=== PATIENT | female | born 1940 | race Caucasian/White ===

== ENCOUNTER 2016-07-21 | Outpatient (CLI) | payer MEDICARE, OTHER | END 2016-07-21 15:53 | disposition critical access hospital (66) | CPT/HCPCS: A0425; A0429 ==

== ENCOUNTER 2016-07-21 16:30 | Inpatient (IN) | payer MEDICARE, OTHER ==
[2016-07-21] MEDS ORDERED: ONDANSETRON ODT 4 MG TABLET TL STA (16:40)
[2016-07-21] MEDS ORDERED: BENZONATATE 100 MG CAPSULE PO STA (16:40)
[2016-07-21] MEDS ORDERED: SODIUM CHLORIDE 0.9% 1,000 ML IV ONE (16:40)
[2016-07-21] MEDS ORDERED: ACETAMINOPHEN 325 MG TABLET PO STA (16:40)
[2016-07-21] MEDS ORDERED: guaiFENesin/CODEINE 5 ML UDC PO STA (16:40)
[2016-07-21] MEDS ORDERED: ONDANSETRON ODT 4 MG TABLET ONE (16:44)
[2016-07-21] MEDS ORDERED: BENZONATATE 100 MG CAPSULE PO ONE (16:44)
[2016-07-21] MEDS ORDERED: guaiFENesin/CODEINE 5 ML UDC ONE (16:44)
[2016-07-21] MEDS ORDERED: ACETAMINOPHEN 325 MG TABLET PO ONE (16:44)
[2016-07-21] MEDS ORDERED: OSELTAMIVIR 75 MG CAPSULE PO STA (17:47)
[2016-07-21] MEDS ORDERED: OSELTAMIVIR 75 MG CAPSULE PO ONE (17:52)
[2016-07-21] MEDS ORDERED: SODIUM CHLORIDE FLUSH 0.9% 10 ML SYRINGE IVP PRN (18:55)
[2016-07-21] MEDS ORDERED: ONDANSETRON ODT 4 MG TABLET TL PRN (18:55)
[2016-07-21] MEDS ORDERED: ACETAMINOPHEN 325 MG TABLET PO PRN (18:55)
[2016-07-21] MEDS: SODIUM CHLORIDE 0.9% 1,000 ML IV SCH (19:34)
[2016-07-21] MEDS ORDERED: SODIUM CHLORIDE 0.9% IV SCH (20:00)
[2016-07-21] MEDS: AZITHROMYCIN INJ 500 MG in SODIUM CHLORIDE 0.9% 250 ML IV SCH ×2 (20:00→20:21)
[2016-07-21] MEDS ORDERED: CEFTRIAXONE IV SCH (20:00)
[2016-07-21] MEDS: SERTRALINE 50 MG TABLET PO SCH (20:45)
[2016-07-21] MEDS: oxyCOD/ACETAMIN 5 MG/325 MG TABLET PO PRN (20:45)
[2016-07-21] MEDS: LORazepam 0.5 MG TABLET PO PRN (20:45)
[2016-07-21] MEDS: traZODone 50 MG TABLET PO SCH (20:45)
[2016-07-21] MEDS: SODIUM CHLORIDE FLUSH 0.9% 10 ML SYRINGE IVP SCH (20:46)
[2016-07-21] MEDS: cefTRIAXone 2 GM in SODIUM CHLORIDE 0.9% MINIBAG 100 ML IV SCH (21:46)
[2016-07-22] MEDS: SODIUM CHLORIDE FLUSH 0.9% 10 ML SYRINGE IVP SCH ×3 (01:36→21:26)
[2016-07-22] MEDS: oxyCOD/ACETAMIN 5 MG/325 MG TABLET PO PRN ×5 (02:07→21:23)
[2016-07-22] MEDS: guaiFENesin/CODEINE 5 ML UDC PO PRN ×2 (02:12→11:16)
[2016-07-22] MEDS: BENZONATATE 100 MG CAPSULE PO PRN ×2 (03:11→21:22)
[2016-07-22] MEDS: SODIUM CHLORIDE 0.9% 1,000 ML IV SCH ×2 (06:07→15:57)
[2016-07-22] MEDS: LEVOTHYROXINE 75 MCG TABLET PO SCH (06:08)
[2016-07-22] MEDS: hydroCHLOROthiazide 25 MG TABLET PO SCH (08:11)
[2016-07-22] MEDS: SACCHAROMYCES BOULARDII 250 MG CAPSULE PO SCH ×2 (08:11→16:39)
[2016-07-22] MEDS: ENOXAPARIN 40 MG/0.4 ML SYRINGE SUBQ SCH (08:11)
[2016-07-22] MEDS: SERTRALINE 50 MG TABLET PO SCH ×2 (08:11→21:23)
[2016-07-22] MEDS: ACYCLOVIR 200 MG CAPSULE PO SCH (08:11)
[2016-07-22] MEDS: LISINOPRIL 5 MG TABLET PO SCH (08:11)
[2016-07-22] MEDS: POLYETHYLENE GLYCOL 3350 17 GM PACKET PO SCH (08:12)
[2016-07-22] MEDS ORDERED: OSELTAMIVIR 30 MG/5 ML SYRINGE PO SCH (09:00)
[2016-07-22] MEDS ORDERED: OSELTAMIVIR 75 MG CAPSULE PO SCH ×2 (09:00→21:00)
[2016-07-22] MEDS: OSELTAMIVIR 30 MG CAPSULE PO SCH ×2 (11:09→21:22)
[2016-07-22] MEDS: BUTALB/ACETAM/CAFF 50/325/40MG TABLET PO PRN (11:16)
[2016-07-22] MEDS ORDERED: ACETAMINOPHEN 325 MG TABLET PO PRN (12:57)
[2016-07-22] MEDS: AZITHROMYCIN INJ 500 MG in SODIUM CHLORIDE 0.9% 250 ML IV SCH (19:14)
[2016-07-22] MEDS: traZODone 50 MG TABLET PO SCH (21:23)
[2016-07-22] MEDS: cefTRIAXone 2 GM in SODIUM CHLORIDE 0.9% MINIBAG 100 ML IV SCH (21:25)
[2016-07-22] MEDS: LORazepam 0.5 MG TABLET PO PRN (21:40)
[2016-07-23] MEDS ORDERED: traZODone 50 MG TABLET PO SCH (00:04)
[2016-07-23] MEDS: SODIUM CHLORIDE FLUSH 0.9% 10 ML SYRINGE IVP SCH (00:12)
[2016-07-23] MEDS: SODIUM CHLORIDE 0.9% 1,000 ML IV SCH (03:07)
[2016-07-23] MEDS: oxyCOD/ACETAMIN 5 MG/325 MG TABLET PO PRN ×2 (03:11→10:16)
[2016-07-23] MEDS: LEVOTHYROXINE 75 MCG TABLET PO SCH (06:04)
[2016-07-23] MEDS: BUTALB/ACETAM/CAFF 50/325/40MG TABLET PO PRN (08:19)
[2016-07-23] MEDS: BENZONATATE 100 MG CAPSULE PO PRN (08:20)
[2016-07-23] MEDS: OSELTAMIVIR 30 MG CAPSULE PO SCH (08:20)
[2016-07-23] MEDS: SACCHAROMYCES BOULARDII 250 MG CAPSULE PO SCH (08:20)
[2016-07-23] MEDS: SERTRALINE 50 MG TABLET PO SCH (08:20)
[2016-07-23] MEDS: LISINOPRIL 5 MG TABLET PO SCH (08:20)
[2016-07-23] MEDS: hydroCHLOROthiazide 25 MG TABLET PO SCH (08:20)
[2016-07-23] MEDS: ACYCLOVIR 200 MG CAPSULE PO SCH (08:21)
[2016-07-23] MEDS: POLYETHYLENE GLYCOL 3350 17 GM PACKET PO SCH (08:21)
[2016-07-23] MEDS: ENOXAPARIN 40 MG/0.4 ML SYRINGE SUBQ SCH (08:21)
[2016-07-23] MEDS ORDERED: POTASSIUM CHLORIDE 20 MEQ TABLET PO ONE (09:30)
[2016-07-24] MEDS ORDERED: BUPROPION HCL 75 MG PO SCH (09:00)
== END 2016-07-23 13:53 | disposition home or self-care (01) | DRG 195 ==
DX: J18.9 Pneumonia, unspecified organism (principal); R53.1 Weakness; R91.1 Solitary pulmonary nodule; J10.08 Influenza due to other identified influenza virus with other specified pneumonia; G47.30 Sleep apnea, unspecified; J18.1 Lobar pneumonia, unspecified organism; E87.6 Hypokalemia; I10 Essential (primary) hypertension; G47.33 Obstructive sleep apnea (adult) (pediatric); F32.9 Major depressive disorder, single episode, unspecified; F43.10 Post-traumatic stress disorder, unspecified; G43.909 Migraine, unspecified, not intractable, without status migrainosus; E89.0 Postprocedural hypothyroidism; Z87.891 Personal history of nicotine dependence; Z85.42 Personal history of malignant neoplasm of other parts of uterus; Z98.84 Bariatric surgery status

== ENCOUNTER 2016-11-07 13:35 | Outpatient (CLI) | payer MEDICARE, OTHER | END 2016-11-07 13:36 | disposition home or self-care (01) | DX: R06.00 Dyspnea, unspecified (principal); R00.2 Palpitations ==

== ENCOUNTER 2017-05-26 12:33 | Outpatient (CLI) | payer MEDICARE, OTHER ==
[2017-05-26 13:14] LABS: CREATININE 0.7 mg/dL (0.4-1.0)
--- NOTE | 2017-05-26 16:05 | CT Report ---
CT OF THE CHEST WITHOUT CONTRAST: 05/26/2017 CLINICAL INDICATION: Nodules. TECHNIQUE: Axial CT images of the chest were obtained without contrast. COMPARISON: 07/21/2016. FINDINGS: The heart and great vessels demonstrate atherosclerotic calcifications. A small hiatal her yvette is present. Lingular atelectasis persists. There is a 3 mm nodule in the lateral right upper lobe (axial image 24). No suspicious pulmonary nodule or mass lesion is appreciated. No effusion or pneum othorax is present. Limited evaluation of upper abdominal structures demonstrates normal adrenal glan ds. The osseous structures demonstrate degenerative changes. IMPRESSION: STABLE LINGULAR ATELECTASIS. A 3 MM NODULE IN THE LATERAL RIGHT UPPER LOBE. In accordance with CT protocol optimization, one or more of the following dose reduction techniques w ere utilized for this exam: automated exposure control, adjustment of mA and/or KV based on patient size, or use of iterative reconstructive technique. JOB #: [id number] EXT JOB #:[id number]
== END 2017-05-26 12:34 | disposition home or self-care (01) ==
LOC: LAB 12:33
PROVIDERS: ATTEND Nurse Practitioner Family
DX: R91.1 Solitary pulmonary nodule (principal)
CPT/HCPCS: 36415; 71250; 82565

== ENCOUNTER 2018-04-27 08:39 | Day surgery (SDC) | payer MEDICARE, OTHER ==
[2018-04-27] MEDS ORDERED: LACTATED RINGERS 1,000 ML IV ONE (09:30)
[2018-04-27] MEDS ORDERED: LIDO GARGLE 30 ML BOTTLE ONE (09:44)
[2018-04-27] MEDS ORDERED: MIDAZOLAM 2 MG/2 ML VIAL IVP ONE (10:12)
[2018-04-27] MEDS ORDERED: fentaNYL 250 MCG/5 ML VIAL IVP ONE (10:12)
--- NOTE | 2018-04-27 10:26 | ANESTHESIA ---
Pre-Anesthesia VS, & Labs - Diagnosis anemia - Procedure EGD, Colonoscopy Vital Signs: Temp Pulse Resp BP Pulse Ox 36.4 C L 92 18 147/79 H 98 04/27/18 08:55 04/27/18 08:55 04/27/18 08:55 04/27/18 08:55 04/27/18 08:55 Height 5 ft 7 in Weight (kg) 105.1 kg Body Mass Index 35.4 - NPO >8 hours - Is Patient ?: Not Applicable Home Medications and Allergies Home Medications: Ambulatory Orders Multivitamin [Multiple Vitamins] 2 each PO DAILY 04/24/18 LORazepam [Ativan] 1 mg PO BID PRN 12/05/12 Lisinopril 10 mg PO DAILY 12/05/12 Oxycodone HCl/Acetaminophen [Percocet 5-325 mg Tablet] 1 each PO Q4H PRN 12/05/12 Acyclovir 800 mg PO DAILY 04/17/14 Hydrochlorothiazide 25 mg PO DAILY 04/17/14 Trazodone HCl 50 mg PO Q4HR PRN 04/17/14 Cyanocobalamin/Folic Acid [Vitamin Z04-Aylis Acid Tablet] 2 each SL DAILY 06/16/14 Levothyroxine Sodium 75 mcg PO QDAC 07/22/16 Fluoxetine HCl [Prozac] 40 mg PO DAILY 07/23/16 Multivitamin [Multiple Vitamins] 2 each PO DAILY 04/24/18 Allergies/Adverse Reactions: Allergies Allergy/AdvReac Type Severity Reaction Status Date / Time ketorolac tromethamine * Allergy Severe Anaphylaxis Verified 04/24/18 12:32 [From Toradol] dexamethasone Allergy Intermediate Irrational Verified 04/24/18 12:32 behavior hydrocodone bitartrate * Allergy Intermediate Nausea Verified 04/24/18 12:32 [From Vicodin] Penicillins Allergy Intermediate Rash Verified 04/24/18 12:32 morphine Allergy Severe Itching/ Uncoded 04/24/18 12:52 Buring sensation to skin zomax Allergy Severe Anaphylaxis Uncoded 04/24/18 12:52 Anes History & Medical History - Anesthetic History Anesthesia Complications: reports: No previous complications - Medical History Cardiovascular: reports: Hypertension, Arrhythmia Pulmonary: reports: None, Sleep apnea Gastrointestinal: reports: GERD Urinary: reports: Frequency Musculoskeletal: reports: Fibromyalgia Endocrine/Autoimmune: reports: None, HyPOthyroidism Skin: reports: Rosacea, Other Smoking Status: Former smoker - Surgical History General: Gastric surgery Gynecologic: Other Orthopedic: Hip replacement, Knee replacement, Shoulder arthroplasty, Arthroscopic surgery, Other Exam General: Alert Dental: WNL Mouth Openin Fingerbreadth Neck Mobility: Normal Plan Anesthesia Type: MAC (Report from Randa Moseley RN and care assumed as patient not sedated after Versed 6mg and Fentanyl 100mcg, per Dr Shepard's request) Consent for Procedure(s) Verified and Reviewed: Yes Code Status: Attempt Resuscitation ASA classification: 3-Severe systemic disease Is this case an emergency?: No
[2018-04-27] MEDS ORDERED: LIDOCAINE-MPF 2% 5 ML VIAL IM ONE (11:00)
[2018-04-27] MEDS ORDERED: PROPOFOL 200 MG/20 ML VIAL IVP ONE (11:00)
[2018-04-27 11:13] VITALS: BP 123/64
== END 2018-04-27 08:40 | disposition home or self-care (01) ==
LOC: SDS 08:39
PROVIDERS: ATTEND Surgery
PROC: 0DBH8ZX Excision of Cecum, Via Natural or Artificial Opening Endoscopic, Diagnostic (ICD-10-PCS; principal; 2018-04-27 09:45)
PROC: 0DJ08ZZ Inspection of Upper Intestinal Tract, Via Natural or Artificial Opening Endoscopic (ICD-10-PCS; 2018-04-27 09:45)
DX: D62 Acute posthemorrhagic anemia (principal); K57.31 Diverticulosis of large intestine without perforation or abscess with bleeding; K64.8 Other hemorrhoids; K63.89 Other specified diseases of intestine; T88.52XA Failed moderate sedation during procedure, initial encounter; T41.1X5A Adverse effect of intravenous anesthetics, initial encounter; Y92.234 Operating room of hospital as the place of occurrence of the external cause; I10 Essential (primary) hypertension; E66.9 Obesity, unspecified; G47.30 Sleep apnea, unspecified; K21.9 Gastro-esophageal reflux disease without esophagitis; Z98.84 Bariatric surgery status; Z79.899 Other long term (current) drug therapy; Z85.42 Personal history of malignant neoplasm of other parts of uterus; Z68.36 Body mass index [BMI] 36.0-36.9, adult; Z87.891 Personal history of nicotine dependence; Y83.8 Other surgical procedures as the cause of abnormal reaction of the patient, or of later complication, without mention of misadventure at the time of the procedure
CPT/HCPCS: 43235; 45380; A9270; J3010; J7120

== ENCOUNTER 2018-06-22 20:41 | Outpatient (CLI) | payer MEDICARE, OTHER ==
--- NOTE | 2018-06-22 22:25 | Ultrasound Report ---
Reason: BILATERAL LOWER LEG EDEMA. R/O DVT Procedure Date: 06/22/2018 Accession Number: [id number] / [id number] Procedure: US - Duplex Ext Veins Bilateral CPT Code: FULL RESULT: EXAM: BILATERAL LOWER EXTREMITY VENOUS ULTRASOUND EXAM DATE: 06/22/2018 09:29 PM. CLINICAL HISTORY: BILATERAL LOWER LEG EDEMA. R/O DVT. COMPARISON: None. TECHNIQUE: Real-time sonographic vascular imaging was performed by the personal insurance advisor through the lower extremities utilizing both color-flow and Doppler spectral analysis. Multiple new accounts representative static images were saved for review. FINDINGS: Right: Common Femoral Vein (CFV): Normal. CFV-GSV Junction: Normal. Profunda Femoral Vein (PFV): Normal. Femoral Vein (FV) Prox: Normal. Femoral Vein (FV) Mid: Normal. Femoral Vein (FV) Dist: Normal. Popliteal Vein: Normal. Posterior Tibial Veins: Limited visualization. Peroneal Veins: Nonvisualized. Left: Common Femoral Vein (CFV): Normal. CFV-GSV Junction: Normal. Profunda Femoral Vein (PFV): Normal. Femoral Vein (FV) Prox: Normal. Femoral Vein (FV) Mid: Normal. Femoral Vein (FV) Dist: Limited visualization. Popliteal Vein: Normal. Posterior Tibial Veins: Limited visualization. Peroneal Veins: Nonvisualized. Other: None. IMPRESSION: No evidence for deep venous thrombosis bilaterally. RADIA
== END 2018-06-22 20:42 | disposition home or self-care (01) ==
LOC: DI 20:41
PROVIDERS: ATTEND Nurse Practitioner Family
DX: R60.0 Localized edema (principal)
CPT/HCPCS: 93970

== ENCOUNTER 2018-10-06 13:43 | Outpatient (CLI) | payer MEDICARE, OTHER | END 2018-10-06 13:44 | disposition home or self-care (01) | LOC: DI 13:43 | PROVIDERS: ATTEND Internal Medicine | DX: R55 Syncope and collapse (principal) | CPT/HCPCS: 93306 ==

== ENCOUNTER 2019-01-04 12:31 | Outpatient (CLI) | payer MEDICARE, OTHER | END 2019-01-04 12:32 | disposition critical access hospital (66) | LOC: EMS 12:31 | PROVIDERS: ATTEND Surgery | DX: R51 Headache (principal); R11.0 Nausea; R45.83 Excessive crying of child, adolescent or adult | CPT/HCPCS: A0425; A0429 ==

== ENCOUNTER 2019-01-04 13:07 | Emergency (ER) | payer MEDICARE, OTHER ==
[2019-01-04] MEDS ORDERED: ONDANSETRON 4 MG/2 ML VIAL IVP STA (13:29)
[2019-01-04] MEDS ORDERED: SODIUM CHLORIDE 0.9% 1,000 ML IV ONE (13:29)
--- NOTE | 2019-01-04 13:33 | ED Physician Documentation ---
History of Present Illness - Stated complaint Stated Complaint: NAUSEA - Chief complaint Chief Complaint: General - History obtained from History obtained from: Patient - History of Present Illness Pain level max: 3 Pain level now: 3 - Additonal information Additional information: 78-year-old female presents to the emergency department after a trip and fall 1 month ago. She struck her head has had persistent since that time. She does state that she had a loss of consciousness. Has made 2 appointments with her doctor this last month but has not gone to either 1 of them because she said she was "too sick". Occasional vomiting, but mainly nausea. No abdominal pain. No diarrhea. No constipation. No fevers. No cough. Has not taken anything for this. No changes to her medications. Is not on blood thinners. Review of Systems Ten Systems: 10 systems reviewed and negative Constitutional: denies: Fever, Chills Ears: denies: Ear pain Nose: denies: Rhinorrhea / runny nose, Congestion Respiratory: denies: Cough, Wheezing : denies: Dysuria Skin: denies: Rash Musculoskeletal: denies: Neck pain, Back pain Neurologic: denies: Headache PD PAST MEDICAL HISTORY - Past Medical History Cardiovascular: Hypertension, Arrhythmia Respiratory: None, Sleep apnea Endocrine/Autoimmune: None, HyPOthyroidism GI: GERD : Frequency HEENT: Other Psych: Depression Musculoskeletal: Fibromyalgia Derm: Rosacea, Other - Past Surgical History Past Surgical History: Yes General: Gastric surgery Ortho: Hip replacement, Knee replacement, Shoulder arthroplasty, Arthroscopic surgery, Other /[employer] SUPERINTENDENT: Other - Present Medications Home Medications: Ambulatory Orders Medication Instructions Recorded Confirmed LORazepam [Ativan] 1 mg PO BID PRN 12/05/12 01/04/19 Lisinopril 10 mg PO DAILY 12/05/12 01/04/19 Oxycodone HCl/Acetaminophen 1 each PO Q4H PRN 12/05/12 01/04/19 [Percocet 5-325 mg Tablet] Acyclovir 800 mg PO DAILY 04/17/14 01/04/19 Trazodone HCl 50 mg PO Q4HR PRN 04/17/14 01/04/19 Cyanocobalamin/Folic Acid [Vitamin 2 each SL DAILY 06/16/14 01/04/19 T39-Hnfei Acid Tablet] Levothyroxine Sodium 75 mcg PO QDAC 07/22/16 01/04/19 Fluoxetine HCl [Prozac] 40 mg PO DAILY 07/23/16 01/04/19 Multivitamin [Multiple Vitamins] 2 each PO DAILY 04/24/18 01/04/19 Ondansetron Odt [Zofran] 4 mg TL Q6H PRN #10 tablet 01/04/19 - Allergies Allergies/Adverse Reactions: Allergies Allergy/AdvReac Type Severity Reaction Status Date / Time ketorolac tromethamine * Allergy Severe Anaphylaxis Verified 01/04/19 13:17 [From Toradol] dexamethasone Allergy Intermediate Irrational Verified 01/04/19 13:17 behavior hydrocodone bitartrate * Allergy Intermediate Nausea Verified 01/04/19 13:17 [From Vicodin] Penicillins Allergy Intermediate Rash Verified 01/04/19 13:17 morphine Allergy Severe Itching/ Uncoded 01/04/19 13:17 Buring sensation to skin zomax Allergy Severe Anaphylaxis Uncoded 01/04/19 13:17 - Social History Does the pt smoke?: No Smoking Status: Former smoker Does the pt drink ETOH?: No Does the pt have substance abuse?: No - Immunizations Immunizations are current?: No - POLST Patient has POLST: No PD ED PE NORMAL - Vitals Vital signs reviewed: Yes - General General: Alert and oriented X 3, No acute distress - HEENT HEENT: Atraumatic, PERRL, Ears normal, Moist mucous membranes, Pharynx benign - Neck Neck: Supple, no meningeal sign, No bony TTP - Cardiac Cardiac: RRR, Strong equal pulses - Respiratory Respiratory: No respiratory distress, Clear bilaterally - Abdomen Abdomen: Soft, Non tender, Non distended - Back Back: No spinal TTP - Derm Derm: Warm and dry - Extremities Extremities: No edema - Neuro Neuro: Alert and oriented X 3, riprap man 2-12 intact, No motor deficit, No sensory deficit, Normal speech Eye Opening: Spontaneous Motor: Obeys Commands Verbal: Oriented GCS Score: 15 - Psych Psych: Normal mood, Normal affect Results - Vitals Vitals: Vital Signs - 24 hr 01/04/19 01/04/19 01/04/19 13:10 13:48 14:44 Temperature 36.4 C L Heart Rate 67 64 62 Respiratory 16 18 9 L Rate Blood Pressure 160/90 H 160/90 H 157/77 H O2 Saturation 96 97 96 01/04/19 15:36 Temperature 36.3 C L Heart Rate 70 Respiratory 16 Rate Blood Pressure 153/80 H O2 Saturation 97 Oxygen O2 Source Room air - Labs Labs: Laboratory Tests 01/04/19 01/04/19 01/04/19 13:21 13:21 13:41 WBC 4.2 L RBC 3.60 L Hgb 12.2 Hct 37.5 MCV 104.2 H MCH 33.9 H MCHC 32.5 RDW 12.0 Plt Count 178 MPV 8.8 Neut # (Auto) 2.4 Lymph # (Auto) 1.2 L Foster # (Auto) 0.5 Eos # (Auto) 0.1 Baso # (Auto) 0.0 Absolute Nucleated RBC 0.00 Nucleated RBC % 0.0 Sodium 137 Potassium 4.3 Chloride 101 Carbon Dioxide 25 Anion Gap 11.0 BUN 11 Creatinine 0.9 Estimated GFR (MDRD) 61 L Glucose 121 H Calcium 9.2 Total Bilirubin 0.8 AST 29 ALT 28 Alkaline Phosphatase 40 L Total Protein 6.6 L Albumin 3.5 Globulin 3.1 Albumin/Globulin Ratio 1.1 Lipase 26 Urine Color YELLOW Urine Clarity CLEAR Urine pH 7.0 Ur Specific [place] 1.010 Urine Protein NEGATIVE Urine Glucose (UA) NEGATIVE Urine Ketones 15 H Urine Occult Blood NEGATIVE Urine Nitrite NEGATIVE Urine Bilirubin NEGATIVE Urine Urobilinogen 1 (NORMAL) Ur Leukocyte Esterase NEGATIVE Ur Microscopic Review NOT INDICATED Urine Culture Comments NOT INDICATED - Rads (name of study) head CT Radiology: Prelim report reviewed, EMP read contemporaneously, See rad report (No acute intracranial abnormality) PD MEDICAL DECISION MAKING - ED course Complexity details: reviewed results, re-evaluated patient, considered differential, d/w patient ED course: 78-year-old female with nausea and a head injury a month ago. No acute findings on head CT. Nausea resolved with Zofran. Feels better after IV fluids. Tolerating p.o. without difficulty and ambulating well. We will follow-up with her doctor for further care. Patient counseled regarding signs and symptoms for which I believe and urgent re-evaluation would be necessary. Patient with good understanding of and agreement to plan and is comfortable going home at this time This document was made in part using voice recognition software. While efforts are made to proofread this document, sound alike and grammatical errors may occur. Departure - Departure Disposition: 01 Home, Self Care Clinical Impression: Nausea Concussion Qualifiers: Encounter type: initial encounter Loss of consciousness presence/duration: with LOC of unspecified duration Qualified Code(s): S06.0X9A - Concussion with loss of consciousness of unspecified duration, initial encounter Condition: Good Instructions: ED Concussion, ED Nausea Vomiting Follow-Up: TOAN CASTRO MD [Primary Care Provider] - Within 3 Days Prescriptions: Ondansetron Odt [Zofran] 4 mg TL Q6H PRN #10 tablet PRN Reason: Nausea / Vomiting Comments: Your head CT does not show any acute abnormality today or on your laboratory testing. Use the Zofran as needed for nausea. The headaches may continue from the concussion. Follow-up with your doctor for further care. Discharge Date/Time: 01/04/19 16:16
[2019-01-04 13:38] LABS: BASOPHILS % (AUTO) 0.5 %; EOSINOPHILS # (AUTO) 0.1 10^3/uL (0.0-0.7); EOSINOPHILS % (AUTO) 1.7 %; HGB - HEMOGLOBIN 12.2 g/dL (12.0-16.0); LYMPHOCYTES # (AUTO) 1.2 10^3/uL (1.5-3.5); LYMPHOCYTES % (AUTO) 27.8 %; MEAN CORPUSCULAR HEMOGLOBIN 33.9 pg (27.0-31.0); MEAN CORPUSCULAR HGB CONC 32.5 g/dL (32.0-36.0); MEAN CORPUSCULAR VOLUME 104.2 fL (81.0-99.0); MEAN PLATELET VOLUME 8.8 fL (7.9-10.8); MONOCYTES # (AUTO) 0.5 10^3/uL (0.0-1.0); MONOCYTES % (AUTO) 12.3 %; NEUTROPHILS # (AUTO) 2.4 10^3/uL (1.5-6.6); NEUTROPHILS % (AUTO) 57.5 %; PLT - PLATELET COUNT 178 10^3/uL (130-450); WHITE BLOOD COUNT 4.2 x10^3/uL (4.8-10.8)
[2019-01-04 13:50] LABS: GLUCOSE, URINE (UA) NEGATIVE (NEGATIVE); KETONES,URINE (UA) 15 mg/dL (NEGATIVE); LEUKOCYTE ESTERASE, URINE NEGATIVE (NEGATIVE); NITRITE,URINE NEGATIVE (NEGATIVE); OCCULT BLOOD,URINE NEGATIVE (NEGATIVE); PROTEIN,URINE NEGATIVE (NEGATIVE); UROBILINOGEN,URINE 1 (NORMAL) E.U./dL (NORMAL)
[2019-01-04 13:51] LABS: ALBUMIN 3.5 g/dL (3.2-5.5); ALBUMIN/GLOBULIN RATIO 1.1 (1.0-2.2); BILIRUBIN,TOTAL 0.8 mg/dL (0.2-1.0); CALCIUM 9.2 mg/dL (8.5-10.3); CREATININE 0.9 mg/dL (0.4-1.0); TOTAL PROTEIN 6.6 g/dL (6.7-8.2)
[2019-01-04 13:54] LABS: BILIRUBIN,URINE NEGATIVE (NEGATIVE); CLARITY,URINE CLEAR (CLEAR); ICTOTEST,URINE NEGATIVE
--- NOTE | 2019-01-04 15:14 | CT Report ---
Reason: fall, head injury 1 month ago, persistent BERGMAN Procedure Date: 01/04/2019 Accession Number: [id number] / [id number] Procedure: CT - HEAD WO CPT Code: FULL RESULT: EXAM: CT HEAD EXAM DATE: 01/04/2019 02:09 PM. CLINICAL HISTORY: Fall, head injury 1 month ago, persistent BERGMAN. COMPARISON: None. TECHNIQUE: Multiaxial CT images were obtained from the foramen magnum to the vertex. Reformats: Sagittal and coronal. IV contrast: None. In accordance with CT protocol optimization, one or more of the following dose reduction techniques were utilized for this exam: automated exposure control, adjustment of mA and/or KV based on patient size, or use of iterative reconstructive technique. FINDINGS: Parenchyma: No intraparenchymal hemorrhage. No evidence of mass, midline shift, or CT findings of infarction. Tiny focus of benign calcification is seen in left basal ganglia. Falcon-white differentiation is distinct. Extraaxial Spaces: Normal for age. No subdural or epidural collections identified. Ventricles: Normal in size and position. Sinuses and Orbits: Imaged paranasal sinuses, orbits, and mastoids show no significant abnormality. Bones: No evidence of fracture or calvarial defect. Other: None. IMPRESSION: No acute traumatic intracranial abnormality. No acute displaced calvarial fracture. No subcutaneous or scalp hematoma. RADIA
[2019-01-04 15:36] VITALS: BP 153/80
== END 2019-01-04 16:16 | disposition home or self-care (01) ==
LOC: EDUNIT# → ED 13:07
DX: S06.0X9A Concussion with loss of consciousness of unspecified duration, initial encounter (principal); W01.0XXA Fall on same level from slipping, tripping and stumbling without subsequent striking against object, initial encounter; R11.0 Nausea; I10 Essential (primary) hypertension; Z87.891 Personal history of nicotine dependence
CPT/HCPCS: 36415; 70450; 80053; 81001; 81003; 83690; 85025; 87086; 96361; 96374; 99283